=== PATIENT | male | born 1985 | race Two or more races ===

== ENCOUNTER 2024-06-02 12:31 | Emergency (ER) | payer OTHER ==
[~2024-06-02] VITALS: Ht 152.4 cm; Wt 111.1 kg
[2024-06-02] MEDS ORDERED: KETOROLAC TROMETHAMINE 60 MG VIAL IM ONE ×2 (14:00→14:02)
[2024-06-02] MEDS ORDERED: TETANUS & DIPHTHERIA TOX,ADULT 0.5 ML VIAL IM ONE (14:00)
[2024-06-02] MEDS ORDERED: CEFTRIAXONE SODIUM 2,000 MG VIAL IM ONE (14:00)
[2024-06-02] MEDS ORDERED: CEFTRIAXONE SODIUM 2,000 MG VIAL ONE (14:03)
[2024-06-02] MEDS ORDERED: LIDOCAINE HCL 1% 10ML VIAL ONE (14:03)
[2024-06-02] MEDS ORDERED: TETANUS DIPHTHERIA TOX. ADSOR 5 ML VIAL IM ONE (14:03)
== END 2024-06-02 15:46 | disposition home or self-care (01) ==
LOC: ER 12:31
DX: S99.822A Other specified injuries of left foot, initial encounter (principal); X58.XXXA Exposure to other specified factors, initial encounter; Y93.89 Activity, other specified; Y92.832 Beach as the place of occurrence of the external cause; Y99.8 Other external cause status